=== PATIENT | female | born 1975 | race Caucasian/White ===

== ENCOUNTER 2016-04-27 22:06 | Inpatient (IN) | payer OTHER ==
[~2016-04-27] VITALS: Ht 153.7 cm; Wt 72.7 kg
[2016-04-27 23:44] LABS: BASOPHILS % (AUTO) 1.1 % (0-3); EOSINOPHILS % (AUTO) 3.7 % (0-5); MONOCYTES % (AUTO) 8.1 % (4-12); Mean Corpuscular Hemoglobin 33.5 pg (27.0-35.0); Mean Corpuscular Volume 102.4 fL (81-100); NEUTROPHILS % (AUTO) 63.5 % (40-74); Platelet Count 69 bil/L (150-400)
[2016-04-28] VITALS (12 sets, daily range): BP systolic 98–126; BP diastolic 57–81; PULSE 84–103; RESP 18–22; O2SAT 93–98
[2016-04-28 00:01] LABS: INR 1.16 ratio
[2016-04-28 00:08] LABS: Magnesium 1.6 mg/dL (1.6-2.6)
[2016-04-28] MEDS: Pantoprazole Inj 80 MG in 0.9% Sodium Chloride 80 ML IV SCH ×2 (01:19→10:58)
[2016-04-28] MEDS: Octreotide Inj 500 MCG in 0.9% Sodium Chloride 99 ML IV SCH ×2 (01:19→10:58)
[2016-04-28] MEDS ORDERED: Albuterol 2.5 mg/3 mL Inhalation Solution NEB PRN (02:30)
[2016-04-28] MEDS ORDERED: Thiamine Inj 100 MG, Folic Acid Inj 1 MG, Magnesium Sulfate 50% Inj 2 GM, Multivitamins... IV ONE ×5 (03:00)
[2016-04-28] MEDS ORDERED: 0.9% Sodium Chloride 250 ML ONE (03:24)
--- NOTE | 2016-04-28 03:27 | PCM.HPMED ---
Subjective Date of Service Apr 28, 2016 Primary Provider: Admitting Physician: Jessica Villanueva DO Primary Care Physician: Grant Garcia MD Attending Physician: Jessica Villanueva DO Chief Complaint: Hematemesis History of Present Illness: Patient is a 40 year old female with a history of upper GI bleeding and liver cirrhosis secondary to chronic alcohol use. She was a direct admit from [facility] ED. She presented to [facility] on 04/27/16 with hematemesis. At the time of this H& P the patient is quite drowsy and falls asleep after answering 2-3 questions. Reliability of history taken is uncertain. Patient reports she has been having episodes of hematemesis since Friday estimating vomiting up about 1 quart of blood each time. She cannot specify the number of incidents and vaguely reports the last incident to have been the afternoon of 04/27. She was currently denying nausea. She was able to eat lunch on 04/27 and reports having consumed [place]. She has been having diarrhea but denies any blood or dark stool. She denies dysuria and hematuria. She has had chills but no fever. She has not been ill with cold or flu. She has no chest pain but is mildly short of breath. Per ED note, patient seen at [facility] in [place] in March 2016 with upper endoscopy performed. Showed alcoholic gastritis but no esophageal varices. Patient had had varices on prior EGD. The ED note also made mention of the patient having received paracentesis at [facility] on 04/26/16 with about 3L of fluid removed. In the ED patient was afebrile with a heart rate of 99, respiratory rate of 16, blood pressure 121/74, and O2 saturation of 93%. Labs were remarkable for hemoglobin 7.5, hematocrit 22.1, platelets 61, sodium 131, alkaline phosphatase 247, AST 60, and alcohol 0.145. Hgb of 7.5 represents a significant decrease from previous measures done about 1 week prior at [facility] (was 9.0 at the end of Mar.). Dr. Crandall consulted from ED and recommended transfer to [facility] Review of Systems: A comprehensive review of systems was conducted with the patient and found to be negative except as above in the history of present illness. Allergies Coded Allergies: Penicillins (Verified Allergy, Unknown, Hives, 04/27/16) ciprofloxacin (Verified Allergy, Unknown, Hives, 04/27/16) hydrocodone (Verified Allergy, Unknown, Hives, 04/27/16) nitrofurantoin (Verified Allergy, Unknown, Hives, 04/27/16) sulfamethoxazole (Verified Allergy, Unknown, Hives, 04/27/16) trimethoprim (Verified Allergy, Unknown, Hives, 04/27/16) Home Medications Per ED note (unable to verify with patient): Albuterol HFA 2 puffs Q6 PRN SOB/wheezing Cefuroxime 250 mg Clindamycin 150 mg Esomeprazole 40 mg daily Ferrous sulfate 325 mg daily Lasix 40 mg daily Gabapentin 300 mg BID Lactulose Zofran 4 mg Q8H PRN nausea Percocet 5/325 mg Q6 PRN pain Phenergan 25 mg Q6 PRN nausea Spironolactone 100 mg BID Thiamine 100 mg daily Tramadol 50 mg Q6 PRN pain PMH Chronic alcohol use Alcoholic cirrhosis Ascites Anemia Upper GI bleed Anxiety Asthma Surgical History Tubal ligation Family History Family history could not be obtained as patient quite somnolent Social History Hx Alcohol Use: Yes Alcoholic Drinks Per Day: Two 12-oz. beers daily Hx Substance Use: No Hx Tobacco Use: Yes Smoking Status: Current Every Day Smoker (1/2PPD) Living Arrangement: Homeless (Lives in car with her fiance outside [facility]) Exam Vital Signs Vital Sign - Last Date Time Temp Pulse Resp B/P Pulse Ox O2 Delivery O2 Flow Rate FiO2 04/28/16 00:17 37.0 103 20 117/69 96 Nasal Cannula 1.00 Exam Alert and oriented x3, no acute distress; patient quite somnolent Head atraumatic, normocephalic PERRLA, EOMI, sclera difficult to evaluate as patient continually falls asleep during exam Mucus membranes moist, no oral thrush observed No cervical lymphadenopathy, neck supple, nontender Cardiac tones regular rate and rhythm with 2/6 systolic murmur appreciated best at RUSB Lungs clear to auscultation bilaterally with adequate respiratory effort ( anteriorly) No abdominal tenderness, distended, no bowel tones appreciated, tympanic [place] absent Radial pulses normal and equivalent bilaterally, dorsalis pedis pulses normal and equivalent bilaterally No cyanosis, clubbing or edema No ulcerations/open wounds; appears jaundiced Cranial nerves appear to be fully intact, normal speech, patient can move upper and lower limbs grossly Lab and Diagnostics Result Diagram: 04/27/16 2330 04/27/16 2330 Assessment & Plan Patient is a 40 year old female with a history of upper GI bleeding and liver cirrhosis secondary to chronic alcohol use. She was a direct admit from [facility] ED. She presented to [facility] on 04/27/16 with hematemesis. On labs a notable drop in hemoglobin seen since 1 week prior. History of upper GI bleed and possible esophageal varices. Dr. Crandall consulted and agreed to transfer. 1. Acute anemia, present on admission. - Likely secondary to upper GI bleed - alcoholic gastritis or esophageal varices. - Baseline hemoglobin appears to be around 9.0. - Two units of blood typed, crossed and held. Transfuse for hgb less than 7.0. - Continue to monitor H&H closely. 2. Likely upper GI bleed, acute, present on admission. - Dr. Crandall was consulted from [facility] and we appreciate his input. - Protonix drip started and plan to continue at this time. - Octreotide drip started and plan to continue at this time. - NPO in the event that endoscopic procedure needed tomorrow AM. -SBP prophylaxis to be ordered 3. Alcohol use disorder, chronic. - Concern for acute alcohol withdrawal. No known history of withdrawal seizures but patient does have a history of going through withdrawal. - CIWA protocol ordered. Monitor patient closely for signs of withdrawal and give valium per protocol. - Banana bag ordered. - Thiamine ordered 100 mg daily (allegedly a home med). - Multivitamin ordered. 4. Alcoholic cirrhosis with ascites, chronic, presume stable. - Last paracentesis reported to be 04/26/16 with about 3L removed. - Could consider additional paracentesis. - Home meds uncertain but may include Lasix 40 mg daily and spironolactone 100 mg BID. 5. Tobacco use disorder, chronic, ongoing. - Nicotine patch available daily PRN. - When patient more awake, encourage smoking cessation. 6. Asthma, chronic, presume stable. - Albuterol neb available Q4 PRN shortness of breath. 7. Medication reconciliation: - Medication list included in ED note but could not be verified with the patient. - Please try to verify tomorrow either with the patient or pharmacy. 8. Code status - Patient clearly states she wants to be DNR/DNI. - As she was somnolent at time of this H&P, please verify in AM. - Antiemetic available PRN. - Antacid available PRN. Patient admitted under inpatient status with expected length of stay greater than 2 midnights for severity of present symptoms, complexities of treatment plan and risk for adverse events. PCP Dipak Coelho MD GI Prophylaxis: Proton Pump Inhibitor VTE Prophylaxis: SCDs (UGIB / thrombocytopenia - SCDs ) Resuscitation Status: DNR/DNI:Do Not Resuscitate/Intubate Attending Statement The patient was seen and examined together with house staff on 04/28/2016 and I agree with the history, exam and plan as outlined in the note above. copies to: DIPAK COELHO MD, Jennifer E DO Apr 28, 2016 02:55 Jessica Villanueva DO Apr 28, 2016 04:26
[2016-04-28] MEDS: cefTRIAXone Inj 2,000 MG in Dextrose 5% Minibag Plus 50 ML IV SCH (05:01)
--- NOTE | 2016-04-28 05:40 | NUR ---
Admit Pt arrived to PCC room 2004 via transport from [facility] approx. 2230; report received from [facility] RN; all belongings transferred with pt. Medications sent to pharmacy; admit documentation complete; unable to complete med rec r/t pt poor historian - medication list needed from PCP Laquita in [place] per pt report. Advanced directive information given to pt; pt denied information on smoking cessation. Pt on 1L NC d/t drowsiness, otherwise VSS. Pt reports 9/10 pain to abdomen d/t ascitic pressure, able to rest without intervention. Octreotide and Protonix gtts infusing. Per MD, one unit PRBCs initiated this shift for low hgb. Tele SR/ST 90s-100s. CIWA protocol initiated, pt score of 2 this shift. NPO at present, pt verbalized understanding.
[2016-04-28] MEDS ORDERED: Propofol 10,000 mCg/mL 20 mL Inj ONE (07:45)
[2016-04-28] MEDS ORDERED: fentaNYL-PF 50 mCg/mL 2 mL Inj ONE (07:45)
[2016-04-28] MEDS ORDERED: Glycopyrrolate 0.2 mg/mL 5 mL Inj ONE (07:45)
[2016-04-28] MEDS ORDERED: Multivit-Miner-Folic Acid-Iron Tablet PO SCH (08:30)
[2016-04-28 09:37] LABS: Mean Corpuscular Hemoglobin 32.7 pg (27.0-35.0)
[2016-04-28] MEDS: Multivit-Miner-Folic Acid-Iron Tablet PO SCH (10:35)
--- NOTE | 2016-04-28 10:45 | PCM.PNMED ---
Subjective Date of Service Apr 28, 2016 Subjective She has some abdominal discomfort, no more hematemesis. She received 1 unit of packed red blood cells. No diarrhea. Her abdomen is chronically distended with ascites. No cough. Chronic dyspnea. No confusion. Exam Vital Signs Vital Sign - Last Date Time Temp Pulse Resp B/P Pulse Ox O2 Delivery O2 Flow Rate FiO2 04/28/16 09:53 88 04/28/16 07:56 36.9 126/79 95 Nasal Cannula 1.00 04/28/16 04:25 22 Intake and Output 04/27/16 04/27/16 04/28/16 Cumulative From/Thru 15:00 23:00 07:00 04/27/16 22:59 - 04/28/16 06:06 Intake Total 190 ml 190 ml Output Total 300 ml 300 ml Balance -110 ml -110 ml Intake Oral 0 ml 0 ml IV Total 190 ml 190 ml Output Urine Total 300 ml 300 ml # Bowel Movements 1 1 Exam Chronically ill, lethargic but alert and oriented. Fluent speech. Icteric sclera Lungs are clear from left to right. Heart is regular without murmur. Abdomen is grossly distended with ascites minimally tender. Extremities with 1 + edema. IVs and Medications Medications Reviewed: Medications were reviewed in detail Lab and Diagnostics Result Diagram: 04/28/1691904/28/16 0920 Assessment & Plan Patient is a 40 year old female with a history of upper GI bleeding and liver cirrhosis secondary to chronic alcohol use. She was a direct admit from [facility] ED. She presented to [facility] on 04/27/16 with hematemesis. On labs a notable drop in hemoglobin seen since 1 week prior. History of upper GI bleed and possible esophageal varices. Dr. Crandall consulted and agreed to transfer. 1. Acute blood loss anemia, present on admission. -Was given 1 unit of blood. We will follow her hematocrits serially. We will continue Protonix and atria tied. Blood transfusions as needed. 2. Likely upper GI bleed, acute, present on admission. - Dr. Crandall was consulted from [facility] and we appreciate his input. - Protonix drip started and plan to continue at this time. - Octreotide drip started and plan to continue at this time. - NPO in the event that endoscopic procedure needed tomorrow AM. -SBP prophylaxis to be ordered EGD today. 3. Alcohol use disorder, chronic. - Concern for acute alcohol withdrawal. No known history of withdrawal seizures but patient does have a history of going through withdrawal. - CIWA protocol ordered. Monitor patient closely for signs of withdrawal and give valium per protocol. - Banana bag ordered. - Thiamine ordered 100 mg daily (allegedly a home med). - Multivitamin ordered. We will initiate CIWA protocol. 4. Alcoholic cirrhosis with ascites, chronic, presume stable. - Last paracentesis reported to be 04/26/16 with about 3L removed. - Could consider additional paracentesis. - Home meds uncertain but may include Lasix 40 mg daily and spironolactone 100 mg BID. Antibiotic prophylaxis for SBP given her GI bleed. 5. Tobacco use disorder, chronic, ongoing. - Nicotine patch available daily PRN. - When patient more awake, encourage smoking cessation. 6. Asthma, chronic, presume stable. - Albuterol neb available Q4 PRN shortness of breath. 7. Medication reconciliation: - Medication list included in ED note but could not be verified with the patient. - Please try to verify tomorrow either with the patient or pharmacy. 8. Code status - Patient clearly states she wants to be DNR/DNI. - As she was somnolent at time of this H&P, please verify in AM. - Antiemetic available PRN. - Antacid available PRN. Patient admitted under inpatient status with expected length of stay greater than 2 midnights for severity of present symptoms, complexities of treatment plan and risk for adverse events. PCP Oscar Coelho MD Pain Evaluation: Adequate Pain Control GI Prophylaxis: Proton Pump Inhibitor VTE Prophylaxis: SCDs (UGIB / thrombocytopenia - SCDs ) Resuscitation Status: DNR/DNI:Do Not Resuscitate/Intubate Time spent 35 minutes Gerosn Merritt MD Apr 28, 2016 10:45
[2016-04-28] MEDS ORDERED: Glucose 40% Oral Gel 15 Gm Tube PO PRN (11:55)
[2016-04-28] MEDS ORDERED: Lactated Ringer's 1,000 ML IV ONE (12:19)
[2016-04-28] MEDS: Insulin LISPRO 300 Unit/3 mL Inj SUBQ SCH ×3 (13:16→20:33)
--- NOTE | 2016-04-28 13:23 | PCM.HPANE ---
Patient Data Date of Service: Apr 28, 2016 Surgeon Admitting Provider:Jessica Villanueva DO Attending Provider:Jessica Villanuvea DO Primary Care Physician:Grant Garcia MD Other Provider: Reason for Visit Gi Bleed, Hx Varicies Ht/WT & BMI Height (Feet): 5 Height (Inches): 0.50 Weight (Kilograms): 73.400 Body Mass Index 30.95 Allergies Coded Allergies: Penicillins (Verified Allergy, Unknown, Hives, 04/27/16) ciprofloxacin (Verified Allergy, Unknown, Hives, 04/27/16) hydrocodone (Verified Allergy, Unknown, Hives, 04/27/16) nitrofurantoin (Verified Allergy, Unknown, Hives, 04/27/16) sulfamethoxazole (Verified Allergy, Unknown, Hives, 04/27/16) trimethoprim (Verified Allergy, Unknown, Hives, 04/27/16) Past Anesthesia History Anesthesia History: Denies:: Anesthesia Reactions Diabetes History Hx Diabetes?: Yes Current Bedside Blood Glucose: 181 MRSA MRSA: No Medications Hypertension Medication: No Home Meds Incl Beta Cece: No History History of ENT Problems?: No Hx of Heart Problems?: Yes Cardiovascular History: Positive for:: Chest Pain Edema Hypertension Denies:: Cardiac Surgery Congestive Heart Failure Heart Murmur Irregular Heartbeat Pacemaker Thrombophlebitis Hx of Respiratory Problem?: Yes Respiratory History: Positive for:: Asthma COPD Dyspnea Hemoptysis Denies:: Chest Surgery Emphysema Pneumonia Tuberculosis Hx Neurologic Problems?: Yes Neurological History: Positive for:: CVA Dizziness Denies:: Alzheimer's Disease Dementia Headaches Parkinson's Disease Seizures Hx of GI Problems?: Yes Gastrointestinal History: Positive for:: Gastroesphageal Reflux Gastrointestinal Bleeding Heartburn Denies:: Diverticulitis Hepatitis Hiatal Hernia Rectal Bleeding Hx of Problems?: Yes Genitourinary History: Positive for:: Urinary Tract Infection Denies:: HX of Hemodialysis Kidney Stones HX of Peritoneal Dialysis: No Female Hx: Denies:: Currently Endometriosis Pelvic Inflammatory Problems with Breasts? Musculoskeletal History: Positive for:: Back Injury Denies:: Joint Replacement Musculoskeletal Trauma Psycho Social History: Positive for:: Anxiety Hx Depression Suicide Attempt (7yrs ago) Denies:: Bipolar Disorder Hx Surgeries?: Yes (Laparoscopy, head surgery) Other History: Positive for:: Hospitalization Denies:: Cancer Thyroid Disease History Blood Transfusions: Positive for:: Accept Blood Products? Blood Transfusions Denies:: Blood Transfuse Reaction Hx Diabetes: YesBedside Blood Glucose: 181 Hx Alcohol Use: YesAlcoholic Drinks Per Day: Two 12-oz. beers daily Hx Substance Use: No Smoking Status: Current Every Day Smoker (1/2PPD) Have You Smoked inLast 12 mo: YesApprox How Many Cigarettes/day: 10 Stop/Bang Treated for Sleep Apnea?: No Do You Have a CPAP Machine?: No S-Snoring: Do You Snore Loudly: Yes T-Tired: feel tired, fatigued: Yes O-Obsered: Observed not breath: No P-Blood Pressure: treated: No B- Body Mass Index > 35 kg/m2: No A- Age over 50: No N- Neck Large Circumference: No G- Gender Male: No TYSON Total Score: 2 TYSON Risk Assessment: Low Risk, <3 Yes Risk Assessment Category Category 1A: Patient has history of documented sleep apnea, and HAS NOT received any narcotic, sedative or anesthesia administration during this stay. Category 1B: Patient has history of documented sleep apnea, and HAS received any narcotic , sedative or anesthesia administration during this stay Category 2: Patient has SUSPECTED Obstructive Sleep Apnea, and HAS received any narcotic , sedative or anesthesia administration during this stay. Category 3: Patient has SUSPECTED Obstructive Sleep Apnea and HAS NOT received narcotic, sedative or anesthesia administration during this stay. Category 4: Outpatient in Procedural Areas with known sleep apnea or who screen positive for High Risk via the STOP/BANG questionnaire. Exam Exam Vital Signs Vital Signs Date Time Temp Pulse Resp B/P Pulse Ox O2 Delivery O2 Flow Rate FiO2 04/28/16 11:58 37.0 86 22 108/66 96 Nasal Cannula 1.00 04/28/16 11:36 Supplement Oxygen 04/28/16 09:53 88 04/28/16 07:56 36.9 94 126/79 95 Nasal Cannula 1.00 General Appearance: Alert, Oriented X3, Cooperative, No Acute Distress (latest CIWA = 0 after receiving diazepam) HEENT/AIRWAY: MP 2 Lungs: Coarse, Wheezes Heart: Exam Unremarkable, Regular Rate/Rhythm, No Murmurs/Rubs/Gallops Meds/Labs/Diagnostics Admission Meds Current Medications Pantoprazole 80 mg/Sodium Chloride 100 ml @ 10 mls/hr Q10H IV Last administered on 04/28/16 10:58; Start 04/27/16 at 23:05 Octreotide Acetate/Sodium Chloride (SandoSTATIN Inj/ Normal Saline) 100 ml @ 10 mls/hr Q10H IV Last administered on 04/28/16 10:58; Start 04/27/16 at 23:05 Nicotine 1 patch 1 patch DAILY TOPICAL Last administered on 04/28/16 09:26; Start 04/28/16 at 08:30 Thiamine HCl 100 mg/Folic Acid 1 mg/Magnesium Sulfate 2 gm/ Multivitamins 10 ml/ Sodium Chloride 1,015.2 ml @ 500 mls/ hr ONCE ONCE IV Last administered on 08:06; Start 04/28/16 at 03:00; Stop 04/28/16 at 05:01; Status DC Sodium Chloride 250 ml @ ud STK-MED ONCE .ROUTE Last administered on 04/28/16 03:51; Start 04/28/16 at 03:24; Stop 04/28/16 at 03:25; Status DC Ceftriaxone Sodium/Dextrose/ Water (Rocephin Inj/ D5W Minibag Plus) 50 ml @ 100 mls/hr Q24H IV Last administered on 04/28/16 05:01; Start 04/28/16 at 04:25 Insulin Human Lispro (HumaLOG Insulin Inj) Nutritional Dose to be given pr... [facility] SUBQ Last administered on 04/28/16 13:16; Start 04/28/16 at 12:00 Bedside Blood Glucose: 181 Labs Test 04/27/16 23:30 04/28/16 09:20 Neutrophils (%) (Auto) 63.5% (40-74) Lymphocytes (%) (Auto) 22.9% (14-46) Monocytes (%) (Auto) 8.1% (4-12) Eosinophils (%) (Auto) 3.7% (0-5) Basophils (%) (Auto) 1.1% (0-3) Prothrombin Time 12.4sec (8.1-12.5) Prothromb Time International Ratio 1.16ratio Magnesium Level 1.6mg/dL (1.6-2.6) Alcohol, Quantitative 86mg/dL (0-10) White Blood Count 4.7th/mm3 (3.8-10.1) Red Blood Count 2.45mil/mm3 (3.90-5.20) Hemoglobin 8.0g/dL (12.0-15.6) Hematocrit 25.0% (35.0-46.0) Mean Corpuscular Volume 102.0fL (81-100) Mean Corpuscular Hemoglobin 32.7pg (27.0-35.0) Mean Corpuscular Hemoglobin Concent 32.0% (32.0-37.0) Red Cell Distribution Width 18.7% (12.3-15.4) Platelet Count 63bil/L (150-400) Sodium Level 133mEq/L (134-144) Potassium Level 4.2mEq/L (3.5-5.2) Chloride Level 104mEq/L (97-108) Carbon Dioxide Level 16mmol/L (18-29) Blood Urea Nitrogen 6mg/dL (6-20) Creatinine 0.72mg/dL (0.57-1.00) Estimat Glomerular Filtration Rate 129mL/min (>59) Glucose Level 161mg/dL (60-99) Calcium Level 7.2mg/dL (8.5-10.1) Total Bilirubin 1.4mg/dL (0.0-1.2) Aspartate Amino Transf (AST/SGOT) 56U/L (0-50) Alanine Aminotransferase (ALT/SGPT) 13U/L (0-32) Alkaline Phosphatase 217U/L (25-150) Total Protein 6.9g/dL (6.4-8.4) Albumin 1.9g/dL (3.4-5.0) Plan Impression Patient chart reviewed, patient interviewed and anesthestic plan with risks, benefits, and alternatives discussed, and informed consent obtained. NPO Status: Appropriate ASA Physical Status: ASA3 Severe Disease (liver cirrhosis with portal hypertension) Anesthetic Plan: TIVA Bene/Risks/Altern/Consents: Yes HP Complete Prior to Induction: Yes Other Patient took 2 puffs MDI albuterol and wheezing improved. Ruddy Flannery MD Apr 28, 2016 13:23
--- NOTE | 2016-04-28 14:37 | NUR ---
Social Work Note: Screen Note Data& Assessment: EMR reviewed. Patient is a 40 year old female admitted on 04/27/16 for GI Bleed and HX Varicies. Pt has [facility] for insurance coverage and sees Grant Garcia MD for primary care. Pt is homeless.SW to provide patient with homeless resources. SW to continue to follow if any needs arise. Plan[facility] SW to continue to follow if any needs arise. Nya Fam LMSW, ACM
--- NOTE | 2016-04-28 18:42 | NUR ---
Procedure/Dizziness Pt. left for a EGD procedure at ~1810, Pt. was NPO throughout shift with no PO meds given. Only IV meds. where administered. Pt. throughout shift CIWA score has been 13-20, on the last assessment Pt. was sleeping comfortably. Pt. stated feeling dizzy when standing to be helped to the BSC.
--- NOTE | 2016-04-28 19:41 | PCM.ANEP2 ---
Post Anesthesia Evaluation ASA/CMS Post Anesthesia Date of Service: Apr 28, 2016 VS in Patient's Normal Range?: Yes Resp Stable; Airway Patent?: Yes CV Function & Hydration Stable: Yes Mental Status Recovered?: Yes Pain control Satisfactory?: Yes N/V Control Satisfactory?: Yes Ruddy Flannery MD Apr 28, 2016 19:41
--- NOTE | 2016-04-28 20:13 | CONS ---
[address] [address] CONSULTATION REPORT PATIENT: DAY LEONG : 1975 MR#: [id number] ADMIT: 04/27/2016 JOB ID: [id number] DATE OF SERVICE: 04/28/2016 REQUESTING PROVIDER: Day Seymour D.O., Jessica Villanueva D.O. and the [facility] emergency department physician. REASON FOR CONSULTATION: Hematemesis. HISTORY OF PRESENT ILLNESS: This is a 40-year-old female with alcoholic cirrhosis complicated by portal hypertension and ascites who has had numerous hospitalizations at multiple institutions for upper GI bleeding symptoms and therapeutic paracentesis etc. Her last drink of alcohol was yesterday. She presented to the emergency department at [facility] with symptoms of hematemesis, red in color, occurring periodically since about Friday. No report of any melena. Because [facility] did not have GI coverage, they elected to send her to the hospital of her choice which happened to be [facility] this time. ALLERGIES: 1. PENICILLIN. 2. CIPROFLOXACIN. 3. HYDROCODONE. 4. NITROFURANTOIN. 5. SULFAMETHOXAZOLE. 6. TRIMETHOPRIM. MEDICATIONS: The patient denied any nonsteroidal anti-inflammatory medications. Looks like she was written for a variety of medications although it is uncertain how many of these she was taking. Consulting the admitting H and P this list included: 1. Albuterol. 2. Cefuroxime. 3. Clindamycin. 4. Nexium. 5. Iron. 6. Lasix 40 mg daily. 7. Gabapentin. 8. Lactulose. 9. Zofran. 10. Percocet. 11. Phenergan. 12. Spironolactone. 13. Thiamine. 14. Tramadol. PAST MEDICAL HISTORY: Alcohol abuse, cirrhosis, ascites, anemia, hematemesis, anxiety, asthma, prior tubal ligation. FAMILY HISTORY: Noncontributory. SOCIAL HISTORY: Continues to abuse alcohol. She is a daily smoker as well. She, unfortunately, lives in her car with her fiancee quite close to [facility]. REVIEW OF SYSTEMS: Some mild abdominal discomfort. No focal pain. She had a paracentesis yesterday at [facility] ED. PHYSICAL EXAMINATION: Temperature 37.1, pulse 84, breathing 18, blood pressure 106/68, 98% on 1 L. The patient was in no distress. Alert, oriented, appropriate, cooperative, conversational. She had large ascites, but not tense. Mildly uncomfortable. No guarding. No significant edema in the lower extremities. Skin was warm and dry. She has a tattoo on the left ankle. Breathing comfortably in spite of the ascites, good air entry bilaterally was apparent. She was not tachycardic. LABORATORIES: INR 1.16, platelets 63, hemoglobin 8.0, hematocrit 23.7, white count 4.7, bilirubin is 1.4, AST 56, ALT 13, alk phos 217, albumin 1.9, protein 6.9. Sodium 133, potassium 4.2, chloride 104, bicarb 16, BUN 6, creatinine 0.72. Blood alcohol level here in our institution was 86. ASSESSMENT AND PLAN: A 40-year-old female with anemia and report of recent red hematemesis. She has not had a significant drop in hemoglobin based on the number she has posted over at [facility]. We reviewed previous records from [place]. She has previously demonstrated in essence grade 1 varices and has had a little bit of esophagitis. She has portal gastropathy. I therefore highly doubt she has had a variceal bleed. There is certainly no evidence of any ongoing hemorrhage. She has not had any emesis since yesterday. She remains on octreotide PPI and antibiotic. Diagnostic EGD was discussed. The patient consented. Please see the procedure note for further details.
[2016-04-28] MEDS: Ondansetron 2 mg/mL 2 mL Inj IVPUSH PRN (20:46)
--- NOTE | 2016-04-28 21:05 | ENDO ---
[address] [address] ENDOSCOPY PROCEDURE PATIENT: DANIEL LEONG : 1975 MR#: [id number] ADMIT: 04/27/2016 JOB ID: [id number] DATE OF PROCEDURE: 04/28/2016 PROCEDURE: Esophagogastroduodenoscopy. INDICATIONS: A 40-year-old female with alcohol-induced cirrhosis who presented with recurrence of red hematemesis. She has not had a real significant drop in hemoglobin. EQUIPMENT: [id number]. SEDATION: Monitored anesthesia as provided by Dr. Fabiano Flannery. COMPLICATIONS: None identified. PROCEDURE INFORMATION: After the risks and benefits were explained, written and verbal informed consent was obtained. The patient was brought into the endoscopy suite and placed into the left lateral decubitus position. Sedation was achieved as above. Scope introduced into the mouth through the bite block and advanced under direct visualization to the second portion of the duodenum. The scope was slowly withdrawn to carefully examine the mucosa for any defects or lesions. Retroflexed views were accomplished in the stomach. The stomach was decompressed. The scope was removed from the patient who tolerated the procedure reasonably well. FINDINGS: 1. Duodenum: No new or old blood. No significant mucosal pathology from the bulb through to the second portion. 2. Stomach: The patient had no ulcers, no mass lesions. No outlet obstruction. Mild to moderate diffuse portal hypertensive gastropathy. I did not appreciate any varices throughout. There was a bile-stained small remnant of fluid in the gastric lumen. No new or old blood. 3. Esophagus: The squamocolumnar junction correlated with the top of the gastric folds. No evidence of esophagitis. No significant varices. The patient seemed to go into esophageal spasm quite readily in the distal esophagus, but I did not appreciate any significant variceal cushions. In the mid esophagus, these would be rated at grade 1 at best. Certainly, no stigmata of any recent bleeding or high risk features throughout. ENDOSCOPIC DIAGNOSES: 1. Very small esophageal varices. 2. Portal gastropathy. 3. No evidence of any recent or active hemorrhage. RECOMMENDATIONS: 1. Stop octreotide drip. 2. Stop PPI drip. Convert back over to oral therapy. 3. Continue to monitor for alcohol withdrawal. 4. The long-term plan should obviously include complete sobriety and outpatient substance abuse counseling. Based on the pattern of repeat hospitalization over the recent months, the patient has a high risk of dying as a consequence of her alcohol abuse. As her for ascites, this will likely not be a problem long-term if she discontinues her alcohol abuse. In the meantime, I would recommend acquisition of the paracentesis results from [place] to just confirm that there is nothing that needs to be acted on that score. Long-term she needs a 2 g sodium diet and low-dose diuretics, perhaps 20 mg of Lasix for every 50 mg of spironolactone. I will sign off from an inpatient standpoint. In light of her presentation with gastrointestinal bleeding, one could argue that she requires another four days of some form of antibiotic.
[2016-04-29] VITALS (15 sets, daily range): BP systolic 102–151; BP diastolic 61–94; PULSE 80–101; RESP 2–23; O2SAT 94–100
--- NOTE | 2016-04-29 02:36 | NUR ---
Nausea Pt back from surgery at 1915. Transferred by [facility] recovery nurse. Pt alert and orientated requesting snacks. Pt given several snacks. Currently she is on a 2 gram sodium restriction. Pt stated she felt nausea. Anti-emetic medication given. Pt currently asleep.
[2016-04-29] MEDS: cefTRIAXone Inj 2,000 MG in Dextrose 5% Minibag Plus 50 ML IV SCH (05:03)
[2016-04-29] MEDS: Multivit-Miner-Folic Acid-Iron Tablet PO SCH (09:15)
[2016-04-29] MEDS: Pantoprazole 40 mg ER24 Tablet PO SCH (09:15)
[2016-04-29] MEDS: Insulin LISPRO 300 Unit/3 mL Inj SUBQ SCH ×4 (09:22→21:11)
[2016-04-29 10:48] LABS: Mean Corpuscular Hemoglobin 33.1 pg (27.0-35.0); Mean Corpuscular Volume 102.4 fL (81-100)
--- NOTE | 2016-04-29 11:41 | PCM.PNMED ---
Subjective Date of Service Apr 29, 2016 Subjective she states she feels poorly today. Some nausea. No vomiting or diarrhea. Her abdomen is very distended. She wonders about another paracentesis. No chest pain or cough. Some dyspnea from her large abdomen. No hematemesis or blood per rectum. Exam Vital Signs Vital Sign - Last Date Time Temp Pulse Resp B/P Pulse Ox O2 Delivery O2 Flow Rate FiO2 04/29/16 09:24 87 04/29/16 09:07 36.8 20 136/84 96 Room Air 04/29/16 03:54 1.00 Intake and Output 04/28/16 04/28/16 04/29/16 Cumulative From/Thru 15:00 23:00 07:00 04/27/16 22:59 - 04/29/16 06:37 Intake Total 1637 ml 350 ml 2177 ml Output Total 1320 ml 0 ml 1620 ml Balance 317 ml 350 ml 557 ml Intake Oral 350 ml 300 ml 650 ml IV Total 1287 ml 50 ml 1527 ml Output Urine Total 1320 ml 0 ml 1620 ml # Bowel Movements 2 3 Exam Chronically ill. Jaundice. Icteric sclerae. Lethargic Lungs are clear with normal effort. Heart is regular without murmur. Abdomen is sitting. No guarding or rebound Extremities 1+ edema. Fluent speech. Peripheral alert and oriented to time and place. IVs and Medications Medications Reviewed: Medications were reviewed in detail Lab and Diagnostics Result Diagram: 04/29/16 1030 04/29/16 1030 Assessment & Plan Patient is a 40 year old female with a history of upper GI bleeding and liver cirrhosis secondary to chronic alcohol use. She was a direct admit from [facility] ED. She presented to [facility] on 04/27/16 with hematemesis. On labs a notable drop in hemoglobin seen since 1 week prior. History of upper GI bleed and possible esophageal varices. Dr. Crandall consulted and agreed to transfer. 1. Acute blood loss anemia, present on admission. -Her hematocrit improved after her blood transfusion. We will follow serial hematocrits today. 2. Upper GI bleed, POA. Endoscopy indicated some portal hypertensive changes but no variceal bleeding or obvious ulcer. Recommendations from GI were to stop Protonix and octreotide and start oral Protonix. Since of recurrent bleeding overnight. We will also continue to cover her for SBP prophylaxis given GI bleed. 3. Alcohol use disorder, chronic. She has a history of chronic alcohol dependence is currently actively on the CIWA protocol. Her score was 8 this morning. She is denying hallucinations. We will continue protocol. 4. Alcoholic cirrhosis with ascites, chronic, presume stable. We will request a second therapeutic and diagnostic paracentesis today. Antibiotic prophylaxis for SBP given her GI bleed. 5. Tobacco use disorder, chronic, ongoing. - Nicotine patch available daily PRN. - When patient more awake, encourage smoking cessation. 6. Asthma, chronic, POA and stable.. 7. Code status - Patient clearly states she wants to be DNR/DNI. - As she was somnolent at time of this H&P, please verify in AM. - Antiemetic available PRN. - Antacid available PRN. Patient admitted under inpatient status with expected length of stay greater than 2 midnights for severity of present symptoms, complexities of treatment plan and risk for adverse events. PCP Oscar Coelho MD Pain Evaluation: Adequate Pain Control GI Prophylaxis: Proton Pump Inhibitor VTE Prophylaxis: SCDs (UGIB / thrombocytopenia - SCDs ) Resuscitation Status: DNR/DNI:Do Not Resuscitate/Intubate Time spent 30 minutes Gerson Merritt MD Apr 29, 2016 11:41
--- NOTE | 2016-04-29 14:55 | NUR ---
To [facility] pt ordered for US guided paracentesis. pt transported via wheelchair, darian salter/[email or web address] to [facility] at about 1455. technology architect informed.
--- NOTE | 2016-04-29 15:21 | NUR ---
Social Work Note: Continued Discharge Planning/CD Assessment Data& Assessment: SW met with pt at bedside to assess for any unmet needs and CD assessment. The pt has agreed to complete an on-site assessment with [facility]. CD consult deferred. Signed BETO placed on pt chart. Pt was also agreeable for SW to contact her [facility] CM Ling Shah ([phone] ext. [phone]), SW to updated CM when pt is medically ready for discharge. Pt denies any other needs at this time. SW to continue to follow. Plan: Anticipated discharge back to prior living situation when medically ready. Pt provided with resources, [facility], and CD consult deferred to on-site assessment with [facility]. Pt denies any other needs at this time. SW to continue to follow. JENNIFER [place]
--- NOTE | 2016-04-29 15:46 | NUR ---
Received Received from the floor about 1500. Tele SR-ST. BP done lying and standing without drop though states she is always dizzy on standing. US here to prep patient. Awaiting radiology.
[2016-04-29] MEDS ORDERED: 0.9% Sodium Chloride 250 ML ONE (16:17)
[2016-04-29] MEDS ORDERED: Albumin 25% 50 ML IV ONE (16:25)
[2016-04-29 17:04] LABS: BFWBC 58 /mm3; MONOCYTES,BODY FLUID 37 %
[2016-04-29 17:05] LABS: OTHER CELLS,BODY FLUID 40
--- NOTE | 2016-04-29 17:56 | NUR ---
Procedure/Recovery/Transfer Pt. jose. procedure well. [id number] removed. Albumin replaced per order. VSS. Some postural drop noted post procedure but able to stand and transfer without problem and BP wnl. Transferred to 2004 via w/c. Report at bedside to Venessa Delong RN.
[2016-04-29] MEDS: Ondansetron 2 mg/mL 2 mL Inj IVPUSH PRN (21:17)
--- NOTE | 2016-04-30 00:28 | NUR ---
Pain Pt requesting pain medications as pain is 7/10 with an ache in the abdomen. Pt requesting medications before they are able to be given q4h.
[2016-04-30 03:57] VITALS: BP 105/61; PULSE 85; RESP 20; O2SAT 95
[2016-04-30] MEDS: cefTRIAXone Inj 2,000 MG in Dextrose 5% Minibag Plus 50 ML IV SCH (04:02)
[2016-04-30 07:45] VITALS: BP 106/66; PULSE 87; RESP 16; O2SAT 96
[2016-04-30] MEDS: Insulin LISPRO 300 Unit/3 mL Inj SUBQ SCH ×2 (07:52→12:00)
[2016-04-30] MEDS: Multivit-Miner-Folic Acid-Iron Tablet PO SCH (07:52)
[2016-04-30] MEDS: Pantoprazole 40 mg ER24 Tablet PO SCH (07:52)
[2016-04-30 08:11] VITALS: PULSE 88; RESP 18; O2SAT 98
--- NOTE | 2016-04-30 09:38 | DRSVH ---
PROCEDURE: US GUIDED PARACENTESIS, PRIMARY ([id number]) INDICATIONS: ther and diagnostic TECHNIQUE: The indications, alternatives, benefits, risks, and complications of the procedure were explained to the patient. Written informed consent was obtained and placed in the chart. The abdomen and pelvis were examined sonographically, and an appropriate site was chosen for paracentesis. The skin was pre pared and draped in the usual sterile fashion, and 1% lidocaine was infiltrated from the skin down th rough the peritoneal surface. A 19-gauge catheter-covered needle was then introduced into the perito lashawn space, the catheter was advanced and the needle was withdrawn, and thereafter peritoneal fluid w as withdrawn. The catheter was then removed and a dressing was applied. The fluid was discarded if the clinician did not order diagnostic testing of the fluid. The attending physician was present, an d personally performed the procedure. COMPARISON: None. FINDINGS: Access site: Midline pelvis Needle: One-Step centesis catheter with introducer needle. Fluid volume and description: 10.4 L of clear pleural fluid. Fluid sent for diagnostic testing: Fluid sent for cytology, multiple chemistry panels and therapeuti c drainage. Medications: 1% lidocaine for local anaesthesia. Complications: None. IMPRESSION: Successful ultrasound-guided paracentesis. Dictated by: Bill TOWNSEND Interpreted: Lisandra Xavier MD on 04/30/2016 at 9:37 Transcribed by: MILAN on 04/30/2016 at 9:37 Approved by: Lisandra Xavier M.D. on 04/30/2016 at 17:27
[2016-04-30 10:19] LABS: Mean Corpuscular Hemoglobin 32.9 pg (27.0-35.0); Mean Corpuscular Volume 102.4 fL (81-100)
[2016-04-30 11:00] VITALS: PULSE 85
--- NOTE | 2016-04-30 11:04 | PCM.DIMED ---
Discharge Instructions Date of Service Apr 30, 2016 Dates of Hospitalization Apr 27, 2016 at 22:46 Discharge Diagnosis Discharge Diagnosis 1. Acute blood loss anemia, present on admission. Even one unit of blood while in the hospital. 2. Upper GI bleed, POA. Endoscopy indicated some portal gastropathy and minor esophageal varices with no source of active bleeding. 3. Alcohol dependence 4. Alcoholic liver cirrhosis with ascites, chronic 5. Tobacco use disorder, chronic, 6. Asthma, chronic, POA and stable.. Diet No restrictions Activity Limited until seen by PCP Call your provider Fever or Chills, Shortness of breath, Chest pain, Vomitting, Other (rectal bleeding) Patient Instructions See her PCP within a week, Dr. Garcia. Follow-up with PCP in: 1 week Gerson Merritt MD Apr 30, 2016 11:04
[2016-04-30] MEDS ORDERED: OXYC5TAB72 PO (11:06)
[2016-04-30] MEDS ORDERED: CEFD300C3 PO (11:11)
--- NOTE | 2016-04-30 11:13 | NUR ---
Pain pt continues to reporting abdominal pain and discomfort. prn oxycodone given per MD orders. will continue to monitor.
--- NOTE | 2016-04-30 11:44 | PCM.DC.MED ---
Discharge Summary Date of Service Apr 30, 2016 Dates of Hospitalization Date of Hospital Admission Apr 27, 2016 at 22:46 Date of Discharge: Apr 30, 2016 Providers: Admitting Physician: Jessica Villanueva DO Primary Care Physician: Oscar Coelho MD Attending Physician: Jessica Villanueva DO Diagnosis at Time of Discharge Diagnosis at Time of Discharge 1. Acute blood loss anemia, present on admission. Even one unit of blood while in the hospital. 2. Upper GI bleed, POA. Endoscopy indicated some portal gastropathy and minor esophageal varices with no source of active bleeding. 3. Alcohol dependence 4. Alcoholic liver cirrhosis with ascites, chronic 5. Tobacco use disorder, chronic, 6. Asthma, chronic, POA and stable.. Consultations Gastroenterology, Dr. Crandall Procedures XRay, CTs & MRIs None Cardiac Echo Impression None Invasive Procedures Ultrasound guided paracentesis, both therapeutic and diagnostic on April 29. No complications. 10.4 L of fluid removed. Other Diagnostics Upper endoscopy on April 29. The patient was admitted for acute hematemesis. EGD revealed a portal gastropathy and minor esophageal varices with no evidence of current or recent bleeding. No intervention. Brief History Patient is a 40 year old female with a history of upper GI bleeding and liver cirrhosis secondary to chronic alcohol use. She was a direct admit from [facility] ED. She presented to [facility] on 04/27/16 with hematemesis. At the time of this H& P the patient is quite drowsy and falls asleep after answering 2-3 questions. Reliability of history taken is uncertain. Patient reports she has been having episodes of hematemesis since Friday estimating vomiting up about 1 quart of blood each time. She cannot specify the number of incidents and vaguely reports the last incident to have been the afternoon of 04/27. She was currently denying nausea. She was able to eat lunch on 04/27 and reports having consumed [employer]. She has been having diarrhea but denies any blood or dark stool. She denies dysuria and hematuria. She has had chills but no fever. She has not been ill with cold or flu. She has no chest pain but is mildly short of breath. Per ED note, patient seen at [facility] in [place] in March 2016 with upper endoscopy performed. Showed alcoholic gastritis but no esophageal varices. Patient had had varices on prior EGD. The ED note also made mention of the patient having received paracentesis at [facility] on 04/26/16 with about 3L of fluid removed. In the ED patient was afebrile with a heart rate of 99, respiratory rate of 16, blood pressure 121/74, and O2 saturation of 93%. Labs were remarkable for hemoglobin 7.5, hematocrit 22.1, platelets 61, sodium 131, alkaline phosphatase 247, AST 60, and alcohol 0.145. Hgb of 7.5 represents a significant decrease from previous measures done about 1 week prior at [facility] (was 9.0 at the end of Mar.). Dr. Crandall consulted from ED and recommended transfer to [facility]. Hospital Course Patient is a 40 year old female with a history of upper GI bleeding and liver cirrhosis secondary to chronic alcohol use. She was a direct admit from [facility] ED. She presented to [facility] on 04/27/16 with hematemesis. On labs a notable drop in hemoglobin seen since 1 week prior. History of upper GI bleed and possible esophageal varices. Dr. Crandall consulted and agreed to transfer. 1. Acute blood loss anemia, present on admission. -Her hematocrit improved after her blood transfusion. We will follow serial hematocrits today. 2. Upper GI bleed, POA. Endoscopy indicated some portal hypertensive changes but no variceal bleeding or obvious ulcer. Recommendations from GI were to stop Protonix and octreotide and start oral Protonix. Since of recurrent bleeding overnight. We will also continue to cover her for SBP prophylaxis given GI bleed. 3. Alcohol use disorder, chronic. She has a history of chronic alcohol dependence is currently actively on the CIWA protocol. Her score was 8 this morning. She is denying hallucinations. We will continue protocol. 4. Alcoholic cirrhosis with ascites, chronic, presume stable. We will request a second therapeutic and diagnostic paracentesis today. Antibiotic prophylaxis for SBP given her GI bleed. 5. Tobacco use disorder, chronic, ongoing. - Nicotine patch available daily PRN. - When patient more awake, encourage smoking cessation. 6. Asthma, chronic, POA and stable.. 7. Code status - Patient clearly states she wants to be DNR/DNI. - As she was somnolent at time of this H&P, please verify in AM. - Antiemetic available PRN. - Antacid available PRN. Patient admitted under inpatient status with expected length of stay greater than 2 midnights for severity of present symptoms, complexities of treatment plan and risk for adverse events. PCP Oscar Coelho MD Hospital course. This is a patient with end-stage liver disease secondary to alcoholism. She was admitted with hematemesis and had evidence of acute blood loss anemia. She was transfused with 1 unit packed red blood cells and remained stable from a bleeding standpoint after with stable hematocrits. She underwent endoscopy as outlined above with no evidence of acute bleeding. She had minor esophageal varices and portal gastropathy. She had not decline in her hematocrit. She also had gross ascites causing symptoms including dyspnea. She underwent paracentesis on April 29 with 10 L removed. These are sent for studies which are pending. The pain is patient is felt to be stable for discharge on April 30 with oral PPIs as well as oral antibiotics for prophylaxis. Given her allergies to penicillin, Cipro and Bactrim she will be on Ceftin ER 300 mg by mouth twice a day for prophylaxis indefinitely. We will also place her on Protonix. 40 mg daily indefinitely. Exam Vital Signs (Last) Date Time Temp Pulse Resp B/P Pulse Ox O2 Delivery O2 Flow Rate FiO2 04/30/16 11:00 85 04/30/16 08:11 18 98 Room Air 04/30/16 07:45 106/66 04/30/16 03:57 36.8 04/29/16 03:54 1.00 Exam Patient seen and examined in day of discharge Test 04/27/16 23:30 04/28/16 09:20 04/29/16 16:12 04/30/16 10:15 Neutrophils (%) (Auto) 63.5% (40-74) Lymphocytes (%) (Auto) 22.9% (14-46) Monocytes (%) (Auto) 8.1% (4-12) Eosinophils (%) (Auto) 3.7% (0-5) Basophils (%) (Auto) 1.1% (0-3) Prothrombin Time 12.4sec (8.1-12.5) Prothromb Time International Ratio 1.16ratio Magnesium Level 1.6mg/dL (1.6-2.6) Alcohol, Quantitative 86mg/dL (0-10) Hemoglobin A1c 4.9% (4.8-5.6) Body Fluid Source Peritoneal fluid Body Fluid Color Yellow (Clear) Body Fluid Appearance Clear Body Fluid WBC 58/mm3 Body Fluid RBC 243/mm3 Body Fluid Polynuclear WBCs 1% Body Fluid Lymphocytes 22% Body Fluid Monocytes 37% Body Fluid Eosinophils 0% Body Fluid Basophils 0% White Blood Count 4.1th/mm3 (3.8-10.1) Red Blood Count 2.52mil/mm3 (3.90-5.20) Hemoglobin 8.3g/dL (12.0-15.6) Hematocrit 25.8% (35.0-46.0) Mean Corpuscular Volume 102.4fL (81-100) Mean Corpuscular Hemoglobin 32.9pg (27.0-35.0) Mean Corpuscular Hemoglobin Concent 32.2% (32.0-37.0) Red Cell Distribution Width 18.8% (12.3-15.4) Platelet Count 81bil/L (150-400) Sodium Level 134mEq/L (134-144) Potassium Level 4.0mEq/L (3.5-5.2) Chloride Level 104mEq/L (97-108) Carbon Dioxide Level 19mmol/L (18-29) Blood Urea Nitrogen 8mg/dL (6-20) Creatinine 0.93mg/dL (0.57-1.00) Estimat Glomerular Filtration Rate 96mL/min (>59) Glucose Level 170mg/dL (60-99) Calcium Level 7.2mg/dL (8.5-10.1) Total Bilirubin 0.7mg/dL (0.0-1.2) Aspartate Amino Transf (AST/SGOT) 36U/L (0-50) Alanine Aminotransferase (ALT/SGPT) 9U/L (0-32) Alkaline Phosphatase 187U/L (25-150) Ammonia 125ug/dL (18-53) Total Protein 6.1g/dL (6.4-8.4) Albumin 2.0g/dL (3.4-5.0) Discharge Medications Discharge Medications Cefdinir (Cefdinir) 300 Mg Capsule 300 MG PO BID Prescribed by: AMBER LEMON MD Pantoprazole DR (Protonix) 40 Mg Tablet 40 MG PO BID Prescribed by: AMBER LEMON MD As needed oxyCODONE (oxyCODONE) 5 Mg Tablet 10 MG PO Q6H PRN PRN For Moderate Pain Prescribed by: AMBER LEMON MD Followup Plan Disposition: Home. The patient is going to be seen. Her chemical dependency counselor at 2 PM at the hospital prior to discharge for further discharge planning and support planning. Discharge Diet: No restrictions Discharge Activity: Limited until seen by PCP Patient Instructions See her PCP within a week, Dr. Garcia. Follow-up with PCP in: 1 week Time spent 40 minutes Amber Lemon MD Apr 30, 2016 11:44
[2016-04-30] MEDS ORDERED: PANT40TA2 PO (11:45)
[2016-04-30 12:13] VITALS: BP 128/81; PULSE 101; RESP 14; O2SAT 99
--- NOTE | 2016-04-30 12:50 | NUR ---
Discharge pt ordered for discharge home, pt agreed. discharge instructions and medications reviewed with patient. prescriptions given to patient. pt escorted via wheelchair with all belongings to front lobby to [facility] transportation at about 1250.
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
--- NOTE | 2016-04-30 13:51 | NUR ---
Social Work Note: Discharge Late entry Data& Assessment: Per pt is medically ready for discharge. Day Garcia is a 40 year old female admitted on 04/27/2016 for GI Bleed. Per pt is medically improved and ready for discharge. SW met with pt at bedside to confirm discharge plan and assess for any unmet needs. Pt requested Medicaid transport via taxi. SW confirmed pt has the benefit under her [employer] insurance and arranged taxi for 1:00p.m. Pt is independent in her room and at baseline. SW completed CD assessment (See documented in separate note). Pt was accepting of resources. Pt denies any other needs. No other discharge needs identified. Discharge Plan: Per pt is medically ready for discharge back into the community with her fiancee when medically ready via Medicaid transport. Pt accepted CD and community resources with outpt CD and crisis line information included. Pt denies any other needs. No other discharge needs identified. JENNIFER Ren[place]
--- NOTE | 2016-05-01 14:41 | PATH ---
SURGICAL PATHOLOGY Attending Physician:Gerson Merritt MD CASE STATUS: Signed Out PATIENT NAME: DANIEL LEONG PID: [id number] : 1975 DATE COLLECTED:04/29/2016 00:00 SPECIMEN: Peritoneal Fluid CLINICAL HISTORY: Peritoneal Fluid ICD-10 code not given FINAL DIAGNOSIS: PERITONEAL FLUID: NEGATIVE FOR MALIGNANT CELLS. MESOTHELIAL CELLS AND LYMPHOCYTES ARE PRESENT. ICD10 CODE R18.8 GROSS DESCRIPTION: Received fresh on 04/30/2016 is approximately 45 cc of clear yellow fluid. Prepared are one cell block, one ThinPrep and one Cytospin slides. Vo ICD-9 CODES: CPT CODES: 1: 82884, 34153, 44975 Electronically Signed Out Augustine Lind MD [facility] Pathology [facility], [place] [address] Technical component performed at [facility], [address] [place] [address] [address], [place], [address]
== END 2016-04-30 12:55 | disposition home or self-care (01) | DRG 378 ==
LOC: PCC 22:46
PROVIDERS: ADMIT Internal Medicine; ATTEND Internal Medicine
PROC: 30233N1 Transfusion of Nonautologous Red Blood Cells into Peripheral Vein, Percutaneous Approach (ICD-10-PCS; 2016-04-28)
PROC: 0DJ68ZZ Inspection of Stomach, Via Natural or Artificial Opening Endoscopic (ICD-10-PCS; principal; 2016-04-28 16:00)
DX: K92.2 Gastrointestinal hemorrhage, unspecified (principal); D62 Acute posthemorrhagic anemia; K76.6 Portal hypertension; K70.31 Alcoholic cirrhosis of liver with ascites; F10.10 Alcohol abuse, uncomplicated; F17.210 Nicotine dependence, cigarettes, uncomplicated; J45.909 Unspecified asthma, uncomplicated; Z66 Do not resuscitate; Z59.0 Homelessness; I85.00 Esophageal varices without bleeding; K31.89 Other diseases of stomach and duodenum